=== PATIENT | female | born 1960 | race Caucasian/White ===

== ENCOUNTER 2020-06-24 18:52 | Emergency (ER) | payer BC ==
[2020-06-24] MEDS ORDERED: Aspirin 81 MG Tab.Chew PO ONE (19:20)
[2020-06-24] MEDS ORDERED: GI Cocktail Oral Solution 30 ML ONE (19:27)
--- NOTE | 2020-06-24 19:45 | EDM.PDOC ---
ED HPI GENERAL MEDICAL PROBLEM - General Chief Complaint: General Stated Complaint: SHARP PAIN IN UPPER BACK Time Seen by Provider: 06/24/20 18:52 Source of Information: Reports: Patient History Limitations: Reports: No Limitations - History of Present Illness INITIAL COMMENTS - FREE TEXT/NARRATIVE: Patient comes into the emergency department complaint of right sided chest disco mfort. Patient states that it started approximately 1 hour prior to arrival to the emergency department. She states it is sharp shooting sensation on the right upper chest region. It made her extremely nervous and anxious. Patient does not have a coronary artery history and states she is relatively healthy. She states that she does have some anxiety and she is very anxious regarding the discomfort. She denies any numbness or tingling. She also denies any nausea or vomiting. She states that the pain is dissipating a little bit prior to arrival however it is still extensive. Patient also states that she has been having Acid reflux issues. She did take some medication prior to arrival which she states that it was not helpful. She does feel that this is gastrointestinal related however she cannot be certain. Patient denies any other symptoms or concerns Onset: Sudden Location: Reports: Chest Quality: Reports: Ache Severity: Moderate Improves with: Reports: None Worsens with: Reports: None Context: Reports: Other Associated Symptoms: Reports: No Other Symptoms - Related Data Allergies Allergy/AdvReac Type Severity Reaction Status Date / Time sertraline HCl [From Zoloft] Allergy Cannot Verified 06/24/20 19:52 Remember Sulfa (Sulfonamide Allergy Diarrhea Verified 06/24/20 19:52 Antibiotics) sulfamethoxazole Allergy Diarrhea Verified 06/24/20 19:52 [From Decra] trimethoprim [From Decra] Allergy Diarrhea Verified 06/24/20 19:52 Home Meds: Home Meds Amitriptyline HCl 2 tab PO BEDTIME 05/12/14 [History] B Complex & C No.20/Folic Acid [Virt-Caps (1 mg FA B Comp W-C)] 1 tab PO DAILY 05/12/14 [History] Calcium Carb/D3/Magnesium/Zinc [Todd Mag Zinc + D Tablet] 1 tab PO DAILY 05/12/14 [History] Cholecalciferol (Vitamin D3) [Vitamin D3] 1 tab PO DAILY 05/12/14 [History] Clobetasol Propionate 1 dose TOP DAILY PRN 05/12/14 [History] Cyclobenzaprine HCl 1 tab PO BEDTIME PRN 05/12/14 [History] Fluticasone Propionate [Flonase] 1 spray BAMBI DAILY PRN 05/12/14 [History] LORazepam [Ativan] 1 tab PO TID PRN 05/12/14 [History] Lactobacillus Acidophilus [Probiotic] 1 tab PO DAILY 05/12/14 [History] Loratadine/Pseudoephedrine [Claritin-D 24 Hour Tablet] 1 tab PO DAILY PRN 05/12/14 [History] Multivitamin with Minerals [Multiple Vitamin] 1 tab PO DAILY 05/12/14 [History] Olopatadine [Pataday 0.2% Ophth Soln] 1 drop EYEBOTH DAILY 05/12/14 [History] SUMAtriptan 1 tab PO ASDIRECTED 05/12/14 [History] SUMAtriptan [Sumatriptan] 1 spray BAMBI ASDIRECTED 05/12/14 [History] SUMAtriptan succinate [Sumatriptan Succinate] 1 injection SQ ASDIRECTED 05/12/14 [History] Ubidecarenone [Coenzyme Q10] 1 tab PO DAILY 05/12/14 [History] cycloSPORINE [Restasis] 1 drop EYEBOTH BID 05/12/14 [History] estradioL [Estradiol] 1 patch TOP Q7D 05/12/14 [History] Past Medical History - Past Surgical History Other HEENT Surgeries/Procedures: Migranes. ED ROS GENERAL - Review of Systems Review Of Systems: See Below Constitutional: Reports: No Symptoms HEENT: Reports: No Symptoms Respiratory: Reports: No Symptoms Cardiovascular: Reports: No Symptoms Endocrine: Reports: No Symptoms GI/Abdominal: Reports: No Symptoms : Reports: No Symptoms Musculoskeletal: Reports: No Symptoms Skin: Reports: No Symptoms Neurological: Reports: No Symptoms Psychiatric: Reports: No Symptoms Hematologic/Lymphatic: Reports: No Symptoms Immunologic: Reports: No Symptoms ED EXAM, GENERAL - Physical Exam Exam: See Below Exam Limited By: No Limitations General Appearance: Alert, WD/WN, No Apparent Distress Eye Exam: Bilateral Eye: EOMI, PERRL Nose: Normal Inspection, Normal Mucosa Throat/Mouth: Normal Inspection, Normal Lips, Normal Teeth Head: Atraumatic, Normocephalic Neck: Normal Inspection, Supple, Non-Tender, Full Range of Motion Respiratory/Chest: No Respiratory Distress, Lungs Clear, Normal Breath Sounds, No Accessory Muscle Use, Chest Non-Tender Cardiovascular: Normal Peripheral Pulses, Regular Rate, Rhythm, No Edema, No Murmur Back Exam: Normal Inspection, Full Range of Motion Extremities: Normal Inspection, Normal Range of Motion, Non-Tender, No Pedal Edema, Normal Capillary Refill Neurological: Alert, Oriented, CN II-XII Intact, Normal Cognition, Normal Gait Psychiatric: Normal Affect, Normal Mood Skin Exam: Warm, Dry Course - Vital Signs Last Recorded V/S: Last Vital Signs Temp 36.9 C 06/24/20 18:53 Pulse 105 H 06/24/20 18:53 Resp 18 06/24/20 18:53 BP 163/86 H 06/24/20 18:53 Pulse Ox 98 06/24/20 18:53 - Orders/Labs/Meds Orders: Active Orders 24 hr Category Date Time Status Chest 1V Frontal [CR] Stat Exams 06/24/20 19:41 Ordered Labs: Laboratory Tests 06/24/20 06/24/20 Range/Units 19:01 19:01 WBC 5.0 (4.0-10.0) x10^3/uL RBC 3.62 L (4.00-5.50) x10^6/uL Hgb 11.9 L (12.0-16.0) g/dL Hct 34.4 (33.0-47.0) % MCV 95.0 H (78.0-93.0) fL MCH 32.9 H (26.0-32.0) pg MCHC 34.6 (32.0-36.0) g/dL RDW Coeff of Margareth 12.0 (10.0-15.0) % Plt Count 181 (130-400) x10^3/uL Neut % (Auto) 65.9 (50.0-80.0) % Lymph % (Auto) 23.0 L (25.0-50.0) % Hand % (Auto) 9.1 (2.0-11.0) % Eos % (Auto) 1.8 (0.0-4.0) % Baso % (Auto) 0.2 (0.2-1.2) % Sodium 141 (136-145) mmol/L Potassium 3.8 (3.5-5.1) mmol/L Chloride 104 (98-107) mmol/L Carbon Dioxide 27 (21-32) mmol/L Anion Gap 13.8 (5-15) mmol/L BUN 15 (7-18) mg/dL Creatinine 0.9 (0.55-1.02) mg/dL Est Cr Clr Drug Dosing TNP Estimated GFR (MDRD) > 60 Glucose 98 (74-106) mg/dL Calcium 8.9 (8.5-10.1) mg/dL Corrected Calcium 9.22 (8.5-10.1) mg/dL Total Bilirubin 0.3 (0.2-1.0) mg/dL AST 17 (15-37) U/L ALT 23 (14-59) U/L Alkaline Phosphatase 67 (46-116) U/L Troponin I < 0.017 (<=0.056) ng/mL Total Protein 7.3 (6.4-8.2) g/dL Albumin 3.6 (3.4-5.0) g/dL Globulin 3.7 Albumin/Globulin Ratio 0.97 Meds: Medications Discontinued Medications Generic Name Dose Route Start Last Admin Trade Name Nuha PRN Reason Stop Dose Admin Al Hydroxide/Mg Hydroxide Confirm 06/24/20 19:27 Gi Cocktail Administered 06/24/20 19:28 Dose 30 ml .ROUTE .STK-MED ONE Departure - Departure Time of Disposition: 20:00 Disposition: Home, Self-Care 01 Condition: Good Clinical Impression: Chest pain at rest, Chest pain due to GERD - Discharge Information *PRESCRIPTION DRUG MONITORING PROGRAM REVIEWED*: Not Applicable *COPY OF PRESCRIPTION DRUG MONITORING REPORT IN PATIENT KELSY: Not Applicable Instructions: Food Choices for Gastroesophageal Reflux Disease, Adult, Nonspecific Chest Pain, Adult, [id number] Referrals: Marizol Merritt MD [Primary Care Provider] - Forms: ED Department Discharge Additional Instructions: 1. rest 2. increase your water intake 3. Continue all at home medications 4. Activity and diet as tolerated 5. Can take over the counter Tylenol for any pain or discomfort 6. Follow up with PCP if symptoms continue, return, or progress 7. Call with any questions or concerns 8. Was recommended that you be admitted and monitor further Cardiac labs. However you wish to go home. Please return to the emergency department immediately if symptoms do return or progress. You understand and assume all risk. Sepsis Event Note (ED) - Focused Exam Vital Signs: Vital Signs Temp Pulse Resp BP Pulse Ox 06/24/20 18:53 36.9 C 105 H 18 163/86 H 98 - My Orders Last 24 Hours: My Active Orders 06/24/20 19:41 Chest 1V Frontal [CR] Stat - Assessment/Plan Last 24 Hours: My Active Orders 06/24/20 19:41 Chest 1V Frontal [CR] Stat Assessment:: 1. right side chest pain Plan: 1. Labs completed in the ER. Results reviewed with the patient 2. IV initiated in the emergency department 3. IV fluids provided 4. Chest xray completed in ER. Results reviewed with the patient 5. ASA 324mg chewable was given to the patient 6. EKG was completed in ER. Results reviewed with the patient 7. Patient and nursing staff was updated regarding the plan of care 8. GI cocktail given with relief noted 9. Education provided the patient regarding activity, diet, rest, over-the-c ounter medication modalities, and follow-up care was provided 10. Patient and family are agreeable to the above plan of care 11. All questions and concerns were addressed with the patient and family prior to discharge
[2020-06-24 19:48] LABS: ANION GAP 13.8 mmol/L (5-15); CHLORIDE,CL 104 mmol/L (98-107); SODIUM,NA 141 mmol/L (136-145)
[2020-06-24 20:43] VITALS: BP 151/73; PULSE 95
--- NOTE | 2020-06-24 20:58 | CR ---
[id number] RAD/RAD Chest Portable EXAM: PORTABLE CHEST INDICATION: CHEST PAIN COMPARISON: None. DISCUSSION: Mild symmetric bilateral hyperinflation suggests underlying chronic obstructive pulmonary disease. No acute infiltrates are identified. Normal heart size. No effusions. IMPRESSION: 1. No acute findings. Kwame Gardner MD 06/24/202056 Thank you for allowing us to participate in the care of your patient.
== END 2020-06-24 20:15 | disposition home or self-care (01) ==
LOC: VM.ED 18:52
DX: K21.9 Gastro-esophageal reflux disease without esophagitis (principal); Z88.8 Allergy status to other drugs, medicaments and biological substances; Z88.2 Allergy status to sulfonamides; Z79.899 Other long term (current) drug therapy
CPT/HCPCS: 71045; 80053; 84484; 85025; 93005; 99283; 99285-25; A9270-GY